=== PATIENT | male | born 1990 | race Caucasian/White ===

== ENCOUNTER 2020-06-23 16:58 | Emergency (ER) | payer SELFPAY ==
[~2020-06-23] VITALS: Ht 190.5 cm; Wt 181.8 kg
[2020-06-23 17:49] LABS: HEMATOCRIT 46.2 % (42.0-52.0); HEMOGLOBIN 14.4 g/dL (13.5-18.0); MEAN CELL VOLUME 88 fl (78-100); MEAN CORPUSCULAR HEMOGLOBIN 27 pg (27-31); MEAN CORPUSCULAR HGB CONC 31 g/dL (33-37); MEAN PLATELET VOLUME 10.9 fl (7.4-10.4); PLATELET COUNT 228 K/mm3 (130-400); RED BLOOD COUNT 5.26 M/mm3 (4.20-5.60); RED CELL DISTRIBUTION WIDTH 13.7 % (11.5-14.5)
[2020-06-23 18:01] LABS: LYMPHOCYTE 30 % (20-51); MONOCYTE 9 % (3-10); NEUTROPHILS 57 % (42-75)
[2020-06-23 19:27] VITALS: BP 144/99
== END 2020-06-23 19:27 | disposition home or self-care (01) ==
LOC: ED 16:58
PROVIDERS: Family Medicine
DX: M79.671 Pain in right foot (principal); M79.672 Pain in left foot; F17.200 Nicotine dependence, unspecified, uncomplicated